=== PATIENT | male | born 1950 | race Caucasian/White ===

== ENCOUNTER 2017-12-15 15:17 | Emergency (ER) | payer MEDICARE, OTHER ==
[~2017-12-15] VITALS: Ht 182.9 cm; Wt 147.0 kg
[~2017-12-15 15:17] MED LIST: ADVAIR 250-501 EACH
--- OUTSIDE RECORDS SUMMARY | 2017-12-15 15:19 | XMS REPORT | Summary of Care ---
Author Author Jen Hinds R.N. Organization Unknown Address Unknown Phone Unavailable Care Team Providers Care Credit Support Specialist Name Role Phone MARTY HASKINS M.D. Unavailable Unavailable Jen Hinds R.N. Unavailable Unavailable PHYLLIS NATION MD Unavailable Unavailable Unavailable Unavailable Functional Status Name Dates Details Functional status health issues are not documented Status: Name Dates Details Cognitive status health issues are not documented Status: Problems Name Dates Details Asthma (493.90, J45.909) Status: Active Screening for hypercholesterolemia (V77.91, Z13.220) Status: Active Nocturia (788.43, R35.1) Status: Active Screen for colon cancer (V76.51, Z12.11) Status: Active Obstructive sleep apnea (327.23, G47.33) Status: Active Pacemaker (V45.01, Z95.0) Status: Active Pacemaker (V45.01, Z95.0) Status: Active Medications Name Dates Details Proventil HFA 108 (90 Base) MCG/ACT Inhalation Aerosol Solution INHALE 1 PUFF NIGHTLY PRN WHEEZING Active Advair Diskus 250-50 MCG/DOSE MISC 1 PUFF NIGHTLY PRN WHEEZING * Refills: 0 Active Tamsulosin HCl - 0.4 MG Oral Capsule TAKE 1 CAPSULE DAILY * Quantity: 30 Refills: 0 MARTY HASKINS M.D. * Start : 01-Jun-2014 Active Allergies and Adverse Reactions Name Dates Details No Known Drug Allergies (Allergy) Status: Active Past Medical History Name Dates Details History of diverticulitis of colon (V12.79, Z87.19) Status: Resolved Procedures Procedure Dates Details History of Nose Surgery Completed History of Hernia Repair Completed History of Surgery Spermatic Cord Excision Of Hydrocele Completed History of Tonsillectomy With Adenoidectomy Completed History of Oral Surgery Tooth Extraction Completed History of Ear Pressure Equalization Tube, Insertion, Bilaterally Completed History of Complete Colonoscopy Completed History of Pacemaker Placement Completed Immunization Name Dates Details Immunizations not documented Family History Name Dates Details Family history of Diverticulosis (562.10, K57.90) Status: Active Name Dates Details No pertinent family history Status: Active Social History Name Dates Details - Status: Name Dates Details Former smoker Vital Signs Date Test Result Details No Known Vitals to report Results Date Description Value Details Results not documented Plan of Care Name Dates Details Planned Observations Planned Goals not documented Instructions Name Dates Details Instructions not documented Encounters Appointment; NIMA WOODARD M.D. Encounter Diagnosis: Problem not documented On: 08-Feb-2017 14:40 Appointment; MAURICIO RUIZ Encounter Diagnosis: Problem not documented On: 23-Feb-2017 10:30 Appointment; MAURICIO RUIZ Encounter Diagnosis: Problem not documented On: 04-May-2017 11:15 Appointment; [facility], DEVICE Encounter Diagnosis: Problem not documented On: 01-Jun-2017 14:30 Appointment; MAURICIO RUIZ Encounter Diagnosis: Problem not documented On: 15-Jun-2017 11:30 Appointment; [facility], DEVICE Encounter Diagnosis: Problem not documented On: 17-Aug-2017 14:30
[2017-12-15] MEDS ORDERED: DIPHTH/TETANUS/ACEL. PERTUSSIS 0.5 ML SYR IM ONE (16:15)
[2017-12-15 16:58] VITALS: BP 126/70
== END 2017-12-15 16:45 | disposition home or self-care (01) ==
LOC: FSED 15:17
DX: S61.451A Open bite of right hand, initial encounter (principal); L03.113 Cellulitis of right upper limb; W55.01XA Bitten by cat, initial encounter; Y92.008 Other place in unspecified non-institutional (private) residence as the place of occurrence of the external cause; J45.909 Unspecified asthma, uncomplicated
CPT/HCPCS: 99283

== ENCOUNTER → 2019-02-20 | Outpatient (CLI) | payer OTHER ==
--- NOTE | 2019-02-20 17:47 | Diagnostic Imaging Report ---
Thyroid ultrasound. History: Probable abnormality in the neck Comparison: <None available>. Discussion: Transverse and longitudinal images of the thyroid were obtained demonstrating normal echogenicity of the thyroid. The sizes of the lobes are normal with the right thyroid lobe measuring 3.7 x 1.6 x 2.1 cm and the left measuring 4.2 x 1.6 x 1.8 cm. The isthmus is within normal limits measuring 0.4. No nodules are present. No abnormality is identified in the region of the palpable finding below the thyroid prominence. IMPRESSION: Normal thyroid ultrasound. Signed by: Dr. Larry Truong DO on 02/20/2019 5:44 PM
== END ==
LOC: US 13:55
PROVIDERS: ATTEND Internal Medicine Critical Care Medicine
DX: E04.1 Nontoxic single thyroid nodule (principal)
CPT/HCPCS: 76536

== ENCOUNTER 2019-08-24 00:44 | Emergency (ER) | payer MEDICARE ==
[~2019-08-24] VITALS: Ht 182.9 cm; Wt 147.4 kg
--- OUTSIDE RECORDS SUMMARY | 2019-08-24 00:46 | XMS REPORT | Summary of Care ---
Author Author [facility] Organization [facility] Address Unknown Phone Unavailable Care Team Providers Care Dishwasher Busser Name Role Phone Ken Sparrow MD PCP Reason for Visit * Reason Comments Initial Visit tumor left ear * Consult, Test & Treat (Routine) Referred By Contact Referred To Contact Status Reason Specialty Diagnoses / Procedures [facility] [address] [place] [address] Ashly Cowart MD [address] [place] [address] Authorization Otolaryngology Diagnoses Not Needed nov, npp emailed, [address], tumor in left ear P rocedures EAR NEW PATIENT MD Encounter Details Care Team Description Date Type Department Ashly Cowart MD [address] [facility] [address] [place] [address] [phone] Initial Visit (tumor left ear ) 06/09/2019 Office Visit [facility] Otolaryngology [address] [place] [phone] Allergies No Known Allergiesdocumented as of this encounter (statuses as of 06/10/2019) Medications End Date Status Medication Sig Dispensed Refills Start Date Active Ascorbic Acid (VITAMIN C Take by 0 OR) mouth. Active Misc Natural Products Take by 0 (COLON CARE OR) mouth. Active ofloxacin (FLOXIN OTIC) Apply 4 drops 1 Bottle 3 0.3 % otic in left ear 1 solutionIndications: twice a day Otorrhea, unspecified for 14 days. Active ofloxacin (FLOXIN OTIC) Place 5 Drops 1 Bottle 3 0.3 % otic solution in ear(s) two 2 times daily. Apply 5 drops 2 times a day for 1 month in the left ear. Apply 5 drops 2 times a day for 10 days in the right ear. Active ofloxacin (FLOXIN OTIC) Apply 4 drops 1 Bottle 1 0.3 % otic in both ears 3 solutionIndications: twice a day Otorrhea, unspecified for 14 days. Active ofloxacin (FLOXIN) 0.3 % 4 drops in 10 mL 1 otic solution left ear bid 5 for 2 weeks Active fluticasone-salmeterol Advair Diskus 0 (ADVAIR DISKUS) 500-50 500 mcg-50 MCG/DOSE inhaler mcg/dose powder for inhalation Inhale 1 puff twice a day by inhalation route. documented as of this encounter (statuses as of 06/10/2019) Active Problems Problem Noted Date Otorrhea, unspecified 03/23/2014 Mixed hearing loss, bilateral 05/10/2012 Simple or unspecified chronic serous otitis media 05/08/2011 Unspecified sleep apnea 05/08/2011 Nasal polyps 05/08/2011 documented as of this encounter (statuses as of 06/10/2019) Social History Date Tobacco Use Types Packs/Day Years Used Quit: 10/25/1985 Former Smoker Smokeless Tobacco: Former Quit: 10/25/1985 User Drinks/Week oz/Week Comments Alcohol Use No Sex Assigned at Date Recorded Not on file Industry Job Start Date Occupation Not on file Not on file Not on file Travel End Travel History Travel Start No recent travel history available. documented as of this encounter Last Filed Vital Signs Reading Time Taken Comments Vital Sign 163/87 06/09/2019 1:41 PM CDT Blood Pressure 82 06/09/2019 1:41 PM CDT Pulse - - Temperature - - Respiratory Rate - - Oxygen Saturation - - Inhaled Oxygen Concentration 147.4 kg (325 lb) 06/09/2019 1:41 PM CDT Weight 182.9 cm (6') 06/09/2019 1:41 PM CDT Height 44.08 06/09/2019 1:41 PM CDT Body Mass Index documented in this encounter Progress Notes * Ashly Cowart MD - 06/09/2019 2:00 PM CDT Chief complaint(s)/Reason(s) for Consultation: Chief Complaint Patient presents with Initial Visit tumor left ear History of Present Illness: Mr. Becky Peraza is a 68 y.o. year old male presenting today for an evaluation o f his ears. Patient has a history of nasal polyposis and had underwent sinus horta rgery with Dr. Sparrow with excellent resolution of the nasal polyposis. Rosario solano is during this time, he began to have problems with ears, about 10-12 years ag o. Every time he had a cold, he would eventually give fluid in his ears. He we requires multiple sets of ear tubes but unfortunately after they fallen out, the fluid would reoccur. This past March, he went to visit his home in [place], And had issues with the sinuses along with chest tightness. He saw Dr. Lulu morrison n he notice his hearing had decreased. Because his right-sided is this typicall y better hearing ear, the decreased hearing was causing tremendous irritation an d his daily activities and quality of life. Balloon dilations were discussed fo r his eustachian tube and further workup with a CT scan was obtained. He does h ave hearing aids and they have not been helpful.audiogram on April 14 that showed bilateral mixed hearing loss with word discrimination at 96% and procedures. T here is tight C and type a tympanogram in the right and left ear respectively. CT scan was obtained noting chronic changes in the left ear with inflammatory ch anges versus cholesteatoma in the mastoid without any bony erosion. There is se jamila chronic pansinusitis also noted. Patient denies any current pain or draina ge from either ear. There is no relevant family history. Denies fevers, chills, night sweats, hoarseness, dyspnea, hemoptysis, rhinorrhea , dysphagia, odynophagia, trismus, otalgia, or hearing loss. Denies otalgia, otorrhea, trauma, previous head and neck surgeries, history of l oud noise exposure, family history of hearing loss, history of infection, vertig o, and tinnitus. Past Medical History: Past Medical History: Diagnosis Date Asthma Hearing loss Hearing loss Hernia, umbilical Nasal polyps Seasonal allergic rhinitis Past Surgical History: Past Surgical History: Procedure Laterality Date HX PACEMAKER HX SINUS SURGERY HX TONSILLECTOMY AND ADENOIDECTOMY HX TYMPANOSTOMY TUBE PLACEMENT Bilat HX WISDOM TOOTH EXTRACTION Allergies: Patient has no known allergies. Medication: Current Outpatient Medications: Ascorbic Acid (VITAMIN C OR), Take by mouth., Disp: , Rfl: fluticasone-salmeterol (ADVAIR DISKUS) 500-50 MCG/DOSE inhaler, Advair Disk us 500 mcg-50 mcg/dose powder for inhalation Inhale 1 puff twice a day by inhal ation route., Disp: , Rfl: Misc Natural Products (COLON CARE OR), Take by mouth., Disp: , Rfl: ofloxacin (FLOXIN OTIC) 0.3 % otic solution, Apply 4 drops in both ears twi ce a day for 14 days., Disp: 1 Bottle, Rfl: 1 ofloxacin (FLOXIN OTIC) 0.3 % otic solution, Place 5 Drops in ear(s) two ti mes daily. Apply 5 drops 2 times a day for 1 month in the left ear. Apply 5 drop s 2 times a day for 10 days in the right ear., Disp: 1 Bottle, Rfl: 3 ofloxacin (FLOXIN OTIC) 0.3 % otic solution, Apply 4 drops in left ear twic e a day for 14 days., Disp: 1 Bottle, Rfl: 3 ofloxacin (FLOXIN) 0.3 % otic solution, 4 drops in left ear bid for 2 weeks , Disp: 10 mL, Rfl: 1 Social History: Social History Tobacco Use Smoking status: Former Smoker Last attempt to quit: 10/25/1985 Years since quittin.6 Smokeless tobacco: Former User Quit date: 10/25/1985 Substance Use Topics Alcohol use: No Drug use: Not on file Current/previous occupation: Family History: No family history on file. Review of Systems: General: No fevers, chills, or weight loss. No fatigue. Vision: No recent acute vision changes, or eye pain HENT: See HPI Respiratory: No recent or acute dyspnea or hemoptysis. No cough or wheezing. Cardiovascular: No recent chest pain or palpitations. Gastrointestinal: No abdominal pain or melena. No recent diarrhea or constipatio n. No hematemesis. Genitourinary: No dysuria, incontinence, or hematuria. Musculoskeletal: No unexpected bone or joint pain or stiffness. Skin: No lesions, ulcers or rashes. No changes in moles. Hematologic: No abnormal bleeding or easy bruising. No anemia. Neurological: No recent seizures or paralysis, paresthesias, weakness, dysphagia , or memory loss. Physical Exam: Vital Signs: Vitals: 06/09/19 1341 BP: 163/87 Pulse: 82 Weight: (!) 325 lb (147.4 kg) Height: 6' (1.829 m) General: Well-groomed, no acute distress. Strong voice. No appreciated stridor or stertor during the exmination Head/face: Normocephalic. Normal facial tone. No parotid, preauricular, or subma ndibular masses or adenopathy.There is no tenderness to palation. Facial streng th and sensation are intact bilaterally, Brackman scale 1/6 bilaterally, symmetr ic Eyes: Extraoccular movements are intact. There is no spontaneous or gaze induce d nystagmus. Pupils appear equally round and reactive to light. Ears: The auricles are well formed. Right ear: external auditory canal is clear and patent, without any lesions/defe cts or drainage. The tympanic membrane appears to be intact without any perfora tions or retraction pockets although retracted. The middle ear appears to have fluid in the middle ear inferiorly with air-fluid bubble superiorly. Left ear: external auditory canal is clear and patent, without any lesions/defec ts or drainage. The tympanic membrane appears to be intact without any perforat ions or retraction pockets. However, the middle ear appears dull. There is no o bvious cholesteatoma seen in the canal/middle ear. I asked the patient to valsalva, and the right side tympanic membrane lateralize d to a more neutral position, and some clearance of the middle ear fluid was see n. Patient noticed an immediate improvement in hearing in the right ear. Howev er, he did not notice any changes in the left, and there was no movement of the left ear drum. 512 tuning fork: bone > air bilaterally, cuenca midline Nose/Nasopharynx: No lesions, masses, or discharge. The septum appears to be m idline without any ulcerations. Oral cavity/Oropharynx: No visible lesions, masses, exudate appreciate. No satish mus noted. Tongue is fully mobile and extends midline. Soft palate elevates symm etrically. Neck: Supple. No lymphadenopathy or masses. The thyroid is not enlarged and has no palpable nodules. Full range of motion. No audible bruits. Respiratory: Respirations unlabored. Chest rises symmetrically with inspiration Cardiovascular: Heart with regular rate and rhythm. Neurological: Awake, alert and oriented to person, time, and place. EOMI, face symmetric, no tongue deviation, symmetric palatal elevation, no facial numbness, no facial weakness. Normal affect. Diagnostic Tests Reviewed: Audiogram 03/2019 CT Temporal bone: no images available, only reports findings as previously noted . Diagnosis: History of bilateral chronic otitis media, left chronic mastoiditis, acute on ch ronic serous otitis media left worse than right Plan of Care: I reviewed with the patient has clinical findings and the pathophysiology of his recurrent otitis media. Unfortunately,I do not have the actual CT images at th is time, based on today's exam, it is likely more so inflammatory changes/fluid rather than cholesteatoma. At this time I will recommend restarting some nasal saline to perhaps help clear the eustachian tube. Since he was able to demonstr ate good aeration of the right side, I recommend continuation of Valsalva on a r egular basis multiple times a day to continue to help it aerated and hopefully c lear the middle ear. We did review the left side as well which unfortunately di d not change with the Valsalva. We reviewed the options of observation versus a n ear tube. Patient opted for observation for now with regular Valsalva to hope fully clear both middle ears. We'll see him back in 1 month with a hearing test and if at that time there is still persistent fluid in the left side, however r ecommend a tube at that time. We also briefly reviewed mastoidectomy to clear o ut the mastoid is well but if he is able to tolerate repeated ear tube placement , we can consider doing that also without resorting to more complicated procedur es. Patient was pleased that he is able to hear much better from the right ear today and is agreeable with the plan. Sincerely, Ashly Cowart MD Otology, Neurotology, Skull Base Surgery Otolaryngology Head & Neck Surgery [facility] [phone] documented in this encounter Plan of Treatment Care Team Description Date Type Specialty Al Rice AuD [address] [facility] [address] [place] [address] [phone] 07/11/2019 Clinical Audiology Support Ashly Cowart MD [address] [facility] [address] [place] [address] [phone] 07/11/2019 Office Visit Otolaryngology Health Maintenance Due Date Last Done Comments COLON CANCER SCREENIN1951 COLONOSCOPY TETANUS SHOT (ADULT) 1966 BMI FOLLOW UP PLAN 1969 HEPATITIS C SCREENING 1969 AAA Screen 2016 FALL SCREEN 2016 PNEUMOVAX >=65 (PPSV23) 2016 PREVNAR >=65 (PCV13) 2016 FLU VACCINE > 6 MONTHS 05/25/2019 documented as of this encounter Results Not on filedocumented in this encounter Visit Diagnoses Diagnosis Mixed hearing loss, bilateral - Primary Chronic mastoiditis of left side Chronic mastoiditis Bilateral chronic serous otitis media Simple or unspecified chronic serous otitis media documented in this encounter Insurance Type Payer Benefit Subscriber ID Effective Phone Address Plan / Dates Group PPO [email or web address] PPO/CHOICE xxxxxxxxx Effective [address] - for all [id number] [email or web address] [facility] [id number] documented as of this encounter
--- OUTSIDE RECORDS SUMMARY | 2019-08-24 00:46 | XMS REPORT ---
Author Author [facility] Address Unknown Phone Unavailable Care Team Providers Care Clerk Supervisor Name Role Phone NITA ROBERTO Unavailable Unavailable Problems This patient has no known problems. Allergies, Adverse Reactions, Alerts This patient has no known allergies or adverse reactions. Medications This patient has no known medications. Results Test Description Test Time Test Comments Text Results Atomic Results Result Comments THYROID 2019-02-20 17:42:00 [place] [address] Patient Name: VJ FAM MR #: [id number] : 1950 Age/Sex: 68/M Req #: [id number] Adm Physician: Ordered by: NITA ROBERTO MD Report #: [id number] Location: Room/Bed: Procedure: [id number] US/US THYROID Exam Date: 02/20/19 Exam Time: 1413 REPORT STATUS: Signed Thyroid ultrasound. History: Probable abnormality in the neck Comparison: <None available>. Discussion: Transverse and longitudinal images of the thyroid were obtained demonstrating normal echogenicity of the thyroid. The sizes of the lobes are normal with the right thyroid lobe measuring 3.7 x 1.6 x 2.1 cm and the left measuring 4.2 x 1.6 x 1.8 cm. The isthmus is within normal limits measuring 0.4. No nodules are present. No abnormality is identified in the region of the palpable finding below the thyroid prominence. IMPRESSION: Normal thyroid ultrasound. Signed by: Dr. Syeda Truong DO on 02/20/2019 5:44 PM Dictated By: SYEDA TRUONG DO 43 Transcribed By: ANDI on 02/20/191743 COPY TO: NITA ROBERTO MD
--- OUTSIDE RECORDS SUMMARY | 2019-08-24 00:46 | XMS REPORT | Summary of Care ---
Author Author Jen Hinds R.N. Organization Unknown Address Unknown Phone Unavailable Care Team Providers Care Associate Juvenile Court Judge Name Role Phone MARTY HASKINS M.D. Unavailable [...]
--- OUTSIDE RECORDS SUMMARY | 2019-08-24 00:46 | XMS REPORT | Summary of Care ---
Author Author [facility] Organization [facility] Address Unknown Phone Unavailable Care Team Providers Care Automation And Control Engineer Name Role Phone Desi Lawson MD PCP Reason for Visit * Reason Comments Hearing Loss * Consult, Test & Treat (Routine) Referred By Contact Referred To Contact Status Reason Specialty Diagnoses / Procedures Ashly Cowart MD [address] [place] [address] Ashly Cowart MD [address] [place] [address] Authorization Otolaryngology Procedures Not Needed EAR ESTABLISHED VISIT Encounter Details Care Team Description Date Type Department Ashly Cowart MD [address] [place] [address] [phone] Hearing Loss 07/11/2019 Office Visit [facility] Otolaryngology [address] [place] [phone] Allergies No Known Allergiesdocumented as of this encounter (statuses as of 07/12/2019) Medications End Date Status Medication Sig Dispensed [...] puff twice a day by inhalation route. Active ciprofloxacin-dexamethaso Apply 4 drops 1 Bottle 0 ne (CIPRODEX) otic in left ear 9 suspension twice a day for 10 days. documented as of this encounter (statuses as of 07/12/2019) Active Problems Problem Noted Date Otorrhea, unspecified 03/23/2014 Mixed hearing loss, bilateral 05/10/2012 Simple or unspecified chronic serous otitis media 05/08/2011 Unspecified sleep apnea 05/08/2011 Nasal polyps 05/08/2011 documented as of this encounter (statuses as of 07/12/2019) Social History Date Tobacco Use Types Packs/Day Years Used Quit: 1984 Former Smoker 1.5 14 Smokeless Tobacco: Former Quit: 10/25/1985 User Drinks/Week oz/Week Comments Alcohol Use No Alcohol Habits Answer Date Recorded How often do you have a drink containing alcohol? Never 06/13/2019 How many drinks containing alcohol do you have on Not asked a typical day when you are drinking? How often do you have six or more drinks on one Not asked occasion? Sex Assigned at Date Recorded Not on file Industry Job Start Date Occupation Not on file Not on file Not on file Travel End Travel History Travel Start No recent travel history available. documented as of this encounter Last Filed Vital Signs Reading Time Taken Comments Vital Sign 146/78 07/11/2019 1:23 PM CDT Blood Pressure 87 07/11/2019 1:23 PM CDT Pulse - - Temperature - - Respiratory Rate - - Oxygen Saturation - - Inhaled Oxygen Concentration 149.7 kg (330 lb) 07/11/2019 1:23 PM CDT Weight 182.9 cm (6') 07/11/2019 1:23 PM CDT Height 44.76 07/11/2019 1:23 PM CDT Body Mass Index documented in this encounter Progress Notes * Ashly Cowart MD - 07/11/2019 1:30 PM CDT Chief complaint(s): Chief Complaint Patient presents with Hearing Loss History of Present Illness: Becky Peraza is a 69 y.o. year old male presenting today for follow up regarding his hearing loss, eustachian tube dysfunction, chronic otitis media possible le ft ear cholesteatoma. Patient reports that he's been doing well, has not used h is Q-tip in either ear. He went on his trip without any issues. He is doing [place] on a regular basis and that has been helping with his right ear. He feel s that his hearing in his right ear has improved. However the hearing in his le ft ear has not changed. He has not had any pain or drainage from either ear. Past medical, surgical, allergies, and social history were unchanged except as n oted above. Review of Systems: General: No fevers, chills, [...] memory loss. Physical Exam: Vital Signs: Vitals: 07/11/19 1323 BP: 146/78 Pulse: 87 Weight: (!) 330 lb (149.7 kg) Height: 6' (1.829 m) General: Well-groomed, no acute distress. Strong voice. No appreciated stridor or stertor during the examination Head/face: Normocephalic. Normal facial tone. No parotid, preauricular, or subma ndibular masses or adenopathy.There is no tenderness to palpation. Facial stren gth and sensation are intact bilaterally, Brackman scale 1/6 bilaterally, symmet nelly Eyes: Extraoccular movements are intact. There is no spontaneous or gaze induce d nystagmus. Pupils appear equally round and reactive to light. Ears: The auricles are well formed. Right ear: external auditory canal is clear and patent, without any lesions/defe cts or drainage. The tympanic membrane appears to be intact without any perfora tions but there is a slight retraction posterior/inferior which improves to a hy perinflated position with valsalva. The middle ear appears to be well aerate wi thout any fluid, mass or lesion. Left ear: external auditory canal is clear and patent, without any lesions/defec ts or drainage. Cerumen noted on central of drum. The tympanic membrane appears to be intact without any perforations or retraction pockets. However, middle ea r still appears dull, unchanged with valsalva. Procedure Note: Procedure performed: left myringotomy Pre-procedure diagnosis: left chronic otitis media, hearing loss Post-procedure diagnosis: same Anesthesia: none EBL: minimal Findings: left sclerotic ear drum, middle ear filled with serous otitis, paparel la type 1 tube placed Procedure in detail: With the assistance of a binocular microscope, using a micr osuction and ear forceps, cerumen was debrided from the external auditory canal. Following debridement, the external ear canal and ear drum were visualized and described as above. Phenol was placed in posterior quadrant, and radial myringo ary was made. Serous fluid was then suctioned, followed by placement of the tu be. Patient noted an improvement in his hearing immediately. Ofloxacin drops we re placed in the canal thereafter. The patient tolerated the procedure. Nose/Nasopharynx: No lesions, masses, or discharge. The septum appears to be m idline without any ulcerations. Oral cavity/Oropharynx: No visible lesions, masses, exudate appreciate. Tongue is fully mobile and extends midline. Soft palate elevates symmetrically. Neck: Supple. No lymphadenopathy or masses. Full range of motion. Respiratory: Respirations unlabored. Chest rises symmetrically with inspiration Cardiovascular: Heart with regular rate and rhythm. Neurological: Awake, alert and oriented to person, time, and place. EOMI, face symmetric, no tongue deviation, symmetric palatal elevation, no facial numbness, no facial weakness. Normal affect. Diagnostic Tests Reviewed: Audio today: Diagnosis: Left chronic otitis media/mastidoitis, left mixed hearing loss, right sensorineu ral hearing loss (improved conductive component) Plan of Care: We reviewed the patient's hearing status in relation to the hearing test today, and we discussed the pathophysiology and natural history of his hearing loss and chronic otitis media. I do not see any cholesteatoma in the left ear today, ho wever there is still persistent fluid in the ear. Without resolution of the flui d, however recommend drainage today. Risks of tube insertion were reviewed inclu ding pain, infection, chronic otorrhea, worsening hearing, permanent perforation , retained tube, recurrence of fluid after tube self extrusion and need for gisela tional procedures. The details of the procedure was also described to the patie nt. Aftercare including dry ear precautions and ear drop regimen were also dis cussed. Consent was obtained, please see procedure note above. He is to use ea r drops for 5 days. We will see him back in 6 months to check on the ears and t ube. He should call back sooner should he have any changes to hearing, drainage , or dizziness. A total of 25 minutes was spent with the patient of which greater than 50% was s pent in counseling and coordination of care. We discussed the disease process an d management options. Sincerely, Ashly Cowart MD Otology, Neurotology, Skull Base Surgery Otolaryngology Head & Neck Surgery [facility] [phone] documented in this encounter Plan of Treatment Care Team Description Date Type Specialty Ashly Cowart MD 1976 [facility] [address] [place] [address] [phone] 01/09/2020 Office Visit Otolaryngology Order Schedule Name Type Priority Associated Diagnoses Ordered: 07/12/2019 TN CREATE EARDRUM TN Charge Routine Chronic mastoiditis of OPENING,LOCAL ANESTH left side Bilateral chronic serous otitis media Health Maintenance Due Date Last Done Comments COLON CANCER SCREENIN1951 COLONOSCOPY MEDICARE AWV 1951 TETANUS SHOT (ADULT) 1966 BMI FOLLOW UP [...] Effective Phone Address Plan / Dates Group Medicare [employer] CHOICE/LIU xxxxxxxxx 2019- [address] CHOICE Present [id number] [employer] [address] documented as of this encounter
[2019-08-24] MEDS ORDERED: DEXAMETHASONE SOD PHOS 10 MG/1 ML VIAL IM ONE (01:15)
[2019-08-24] MEDS ORDERED: ALBUTEROL/IPRATROPIUM 3 ML NEB NEB ONE (01:15)
[2019-08-24] MEDS ORDERED: IPRATROPIUM BROMIDE 0.02% 2.5 ML NEB ONE (01:20)
[2019-08-24] MEDS ORDERED: ALBUTEROL SULF 0.083% NEB SOLN 3 ML NEB ONE (01:20)
[2019-08-24] MEDS ORDERED: DEXAMETHASONE SOD PHOS 10 MG/1 ML VIAL ONE (01:20)
== END 2019-08-24 02:00 | disposition home or self-care (01) ==
LOC: FSED 00:44
DX: R05 Cough (principal); J20.9 Acute bronchitis, unspecified; J45.31 Mild persistent asthma with (acute) exacerbation
CPT/HCPCS: 99282; J1100

== ENCOUNTER → 2019-09-20 | Outpatient (CLI) | payer MEDICARE | LOC: SLEEP 20:46 | PROVIDERS: ATTEND Internal Medicine Critical Care Medicine | DX: G47.33 Obstructive sleep apnea (adult) (pediatric) (principal) | CPT/HCPCS: 95810 ==